=== PATIENT | male | born 1995 | race Caucasian/White ===

== ENCOUNTER 2020-10-03 11:15 | Emergency (ER) | payer SELFPAY ==
[~2020-10-03] VITALS: Ht 180.3 cm; Wt 111.1 kg
[2020-10-03] MEDS ORDERED: KETOROLAC 30 MG/ML VIAL IVP ONE (12:00)
[2020-10-03 12:10] LABS: ALBUMIN 4.5 GM/DL (3.2-4.5); CHLORIDE 104 MMOL/L (98-107); SODIUM 139 MMOL/L (135-145)
[2020-10-03 12:12] LABS: BASOPHILS # (AUTO) 0.1 10^3/uL (0.0-0.1); BASOPHILS % (AUTO) 1 % (0-10); CALCIUM 9.1 MG/DL (8.5-10.1); EOSINOPHILS # (AUTO) 0.1 10^3/uL (0.0-0.3); EOSINOPHILS % (AUTO) 2 % (0-10); HEMATOCRIT 44 % (40-54); HEMOGLOBIN 14.9 g/dL (13.3-17.7); LYMPHOCYTES # (AUTO) 2.8 10^3/uL (1.0-4.0); LYMPHOCYTES % (AUTO) 31 % (12-44); MEAN CORPUSCULAR HEMOGLOBIN 29 pg (25-34); MEAN CORPUSCULAR HGB CONC 34 g/dL (32-36); MEAN CORPUSCULAR VOLUME 87 fL (80-99); MEAN PLATELET VOLUME 9.8 fL (9.0-12.2); MONOCYTES # (AUTO) 0.7 10^3/uL (0.0-1.0); MONOCYTES % (AUTO) 7 % (0-12); NEUTROPHILS # (AUTO) 5.3 10^3/uL (1.8-7.8); NEUTROPHILS % (AUTO) 58 % (42-75); PLATELET COUNT 275 10^3/uL (130-400)
[2020-10-03 12:13] LABS: GLUCOSE 94 MG/DL (70-105); TOTAL PROTEIN 7.4 GM/DL (6.4-8.2)
[2020-10-03 12:14] LABS: CARBON DIOXIDE 25 MMOL/L (21-32)
[2020-10-03 12:15] LABS: BILIRUBIN,TOTAL 0.4 MG/DL (0.1-1.0)
[2020-10-03 12:16] LABS: ALKALINE PHOSPHATASE 72 U/L (40-136)
[2020-10-03 12:17] LABS: CREATININE SERUM 0.83 MG/DL (0.60-1.30); GFR ESTIMATED > 60
[2020-10-03 12:18] LABS: BUN/CREATININE RATIO 13
[2020-10-03 12:19] LABS: ALANINE AMINOTRANSFERASE 49 U/L (0-55); MAGNESIUM 1.7 MG/DL (1.6-2.4)
--- NOTE | 2020-10-03 12:28 | Diagnostic Imaging Report ---
PATIENT HISTORY: Chest pain. TECHNIQUE: Single frontal view of the chest. COMPARISON: None FINDINGS: The lung volumes are normal. No focal consolidation is seen. No large pleural effusion or pneumothorax is seen. The cardiomediastinal silhouette is normal in size and contour. No acute osseous abnormality is seen. IMPRESSION: No acute pulmonary abnormality seen. Dictated by: Dictated on workstation # [id number]
--- NOTE | 2020-10-03 13:22 | ED Chest Pain ---
General Chief Complaint: Chest Pain Stated Complaint: CP,SOB, NUMBNESS L ARM Nursing Triage Note: Pt c/o sudden onset of CP and SOB while talking with a co-worker. Pt reports radiation to L arm and arm was numb and felt cold. 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 Pt reports similar episode at home a couple weeks ago that only lasted approximately 10 minutes. Nursing Sepsis Screen: No Definite Risk Source: patient Exam Limitations: no limitations Allergies and Home Medications Allergies Coded Allergies: No Known Drug Allergies (Unverified , 08/27/14) Home Medications Prednisone 20 Mg Tab, 40 MG PO DAILY Prescribed by: SON VEGA on 10/03/20 1323 Past Kxcqzpo-Oksdvy-Bbeuxe Hx Patient Social History Alcohol Use: Occasionally Uses Recreational Drug Use: No 2nd Hand Smoke Exposure: No Recent Foreign Travel: No Contact w/Someone Who Travel: No Recent Infectious Disease Expo: No Immunizations Up To Date Tetanus Booster (TDap): Unknown Past Medical History Surgeries: Yes (cyst removal) Appendectomy Respiratory: No Cardiac: Yes ("mitral valve prolapse as child") Neurological: No Gastrointestinal: No Musculoskeletal: Yes (RT SHOULDER INFLAMMATION) Endocrine: No Cancer: No Psychosocial: No Integumentary: No Blood Disorders: No Physical Exam Vital Signs Vital Signs - First Documented 10/03/20 11:25 Temp 36.8 Pulse 84 Resp 25 B/P (MAP) 146/94 (111) Pulse Ox 97 O2 Delivery Room Air Capillary Refill : Less Than 3 Seconds Height, Weight, BMI Height: 6'" Weight: 210lbs. oz. 95.314219uw; 34.00 BMI Method: Progress/Results/Core Measures Results/Orders Lab Results Laboratory Tests Test 10/03/20 11:48 Range/Units White Blood Count 9.0 4.3-11.0 10^3/uL Red Blood Count 5.13 4.30-5.52 10^6/uL Hemoglobin 14.9 13.3-17.7 g/dL Hematocrit 44 40-54 % Mean Corpuscular Volume 87 80-99 fL Mean Corpuscular Hemoglobin 29 25-34 pg Mean Corpuscular Hemoglobin Concent 34 32-36 g/dL Red Cell Distribution Width 12.3 10.0-14.5 % Platelet Count 275 130-400 10^3/uL Mean Platelet Volume 9.8 9.0-12.2 fL Immature Granulocyte % (Auto) 1 % Neutrophils (%) (Auto) 58 42-75 % Lymphocytes (%) (Auto) 31 12-44 % Monocytes (%) (Auto) 7 0-12 % Eosinophils (%) (Auto) 2 0-10 % Basophils (%) (Auto) 1 0-10 % Neutrophils # (Auto) 5.3 1.8-7.8 10^3/uL Lymphocytes # (Auto) 2.8 1.0-4.0 10^3/uL Monocytes # (Auto) 0.7 0.0-1.0 10^3/uL Eosinophils # (Auto) 0.1 0.0-0.3 10^3/uL Basophils # (Auto) 0.1 0.0-0.1 10^3/uL Immature Granulocyte # (Auto) 0.1 0.0-0.1 10^3/uL Sodium Level 139 135-145 MMOL/L Potassium Level 4.0 3.6-5.0 MMOL/L Chloride Level 104 98-107 MMOL/L Carbon Dioxide Level 25 21-32 MMOL/L Anion Gap 10 5-14 MMOL/L Blood Urea Nitrogen 11 7-18 MG/DL Creatinine 0.83 0.60-1.30 MG/DL Estimat Glomerular Filtration Rate > 60 BUN/Creatinine Ratio 13 Glucose Level 94 70-105 MG/DL Calcium Level 9.1 8.5-10.1 MG/DL Corrected Calcium 8.7 8.5-10.1 MG/DL Magnesium Level 1.7 1.6-2.4 MG/DL Total Bilirubin 0.4 0.1-1.0 MG/DL Aspartate Amino Transf (AST/SGOT) 25 5-34 U/L Alanine Aminotransferase (ALT/SGPT) 49 0-55 U/L Alkaline Phosphatase 72 40-136 U/L Troponin I < 0.028 <0.028 NG/ML Total Protein 7.4 6.4-8.2 GM/DL Albumin 4.5 3.2-4.5 GM/DL My Orders Orders - SON FRANKLIN MD Cbc With Automated Diff (10/03/20 11:59) Comprehensive Metabolic Panel (10/03/20 11:59) Troponin I (10/03/20 11:59) Chest 1 View, Ap/Pa Only (10/03/20 11:59) Ketorolac Injection (Toradol Injection) (10/03/20 12:00) Magnesium (10/03/20 12:01) Medications Given in ED Current Medications Medications Dose Ordered Sig/Rafa Route Start Time Stop Time Status Last Admin Dose Admin Ketorolac Tromethamine 30 mg ONCE ONCE IVP 10/03/20 12:00 10/03/20 12:01 DC 10/03/20 12:16 30 MG Vital Signs/I&O 10/03/20 10/03/20 10/03/20 11:25 11:25 13:30 Temp 36.8 36.8 Pulse 84 75 Resp 25 20 B/P (MAP) 146/94 (111) 124/85 (111) Pulse Ox 97 95 O2 Delivery Room Air Room Air Room Air Blood Pressure Mean: 111 Initial ECG Impression Date: Oct 03, 2020 Initial ECG Impression Time: 11:33 Initial ECG Rate: 73 Initial ECG Rhythm: Normal Sinus Initial ECG Intervals: Normal Initial ECG Impression: Normal Comment Normal sinus rhythm with no ischemic ST elevation or depression. Minimal ST changes suggestive of early repolarization in a juvenile pattern. No abnormal intervals or axis deviation. Diagnostic Imaging Diagonstic Imaging: Xray Plain Films/CT/US/NM/MRI: chest Comments Chest x-ray viewed by me and report reviewed. See report below: NAME: BETSEY COOPER [facility] REC#: [id number] PT STATUS: REG ER : 1995 PHYSICIAN: SON FRANKLIN MD ADMIT DATE: 10/03/20/ER Signed Date of Exam:10/03/20 CHEST 1 VIEW, AP/PA ONLY PATIENT HISTORY: Chest pain. TECHNIQUE: Single frontal view of the chest. COMPARISON: None FINDINGS: The lung volumes are normal. No focal consolidation is seen. No large pleural effusion or pneumothorax is seen. The cardiomediastinal silhouette is normal in size and contour. No acute osseous abnormality is seen. IMPRESSION: No acute pulmonary abnormality seen. Dictated by: Dictated on workstation # [id number] Dict: 10/03/20 1226 Trans: 10/03/20 1227 S2M [id number] Interpreted by: MERCEDES URIBE MD Electronically signed by: MERCEDES URIBE MD 10/03/20 1227 Departure Impression Primary Impression: Chest wall pain Additional Impression: Cervical radiculopathy Disposition: HOME, SELF-CARE Condition: Improved Departure-Patient Inst. Referrals: NO,LOCAL PHYSICIAN (PCP/Family) Primary Care Physician Patient Instructions: Chest Pain That Is Not Caused by the Heart (DC), Radi culopathy Add. Discharge Instructions: For pain you may take ibuprofen up to 600 mg every 6 hours as needed. Add Tylenol (acetaminophen) up to 1000 mg every 6 hours as needed for additional pain relief. Complete the prednisone steroid as prescribed. Please establish with a primary care provider soon as possible. The [facility] [place] [facility] may be a good option for you as they have a sliding scale payment plan. Please call soon as possible to schedule an appointment. Please complete the financial advocate paperwork with the hospital to help facilitate any further tests that may need to be done such as MRI of the neck. I suspect that the numbness in your arm and leg, and even possibly your chest pain, may be related to a spine problem in your neck. This should be explored further with a primary care provider if steroids do not resolve your pain. Please return immediately to the emergency room if you have worsening symptoms that include weakness of an arm or leg, difficulty with bowel or bladder control, or numbness in your groin. Return to the emergency room if you have any other urgent problems or concerns. All discharge instructions reviewed with patient and/or family. Voiced understanding. Scripts Prednisone (Prednisone) 20 Mg Tab 40 MG PO DAILY, #8 TAB 0 Refills Prov: SON FRANKLIN MD 10/03/20 Work/School Note: Work Release Form Date Seen in the Emergency Department: Oct 03, 2020 Return to Work: Oct 04, 2020 Other Restrictions Listed Below: Gradually increase level of activity as pain allows SON FRANKLIN MD Oct 03, 2020 13:22
[2020-10-03] MEDS ORDERED: PRD20T PO (13:23)
[2020-10-03 13:30] VITALS: BP 124/85
== END 2020-10-03 13:30 | disposition home or self-care (01) ==
LOC: EDUNIT# 11:15 → ER 11:17
DX: R07.89 Other chest pain (principal); M54.12 Radiculopathy, cervical region; Z79.52 Long term (current) use of systemic steroids
CPT/HCPCS: 36415; 71045; 80053; 83735; 84484; 85025

== ENCOUNTER 2021-05-13 18:39 | Inpatient (IN) | payer SELFPAY ==
[~2021-05-13] VITALS: Ht 185.5 cm; Wt 108.5 kg
[~2021-05-13 18:39] MED LIST: PRD20T PO
--- NOTE | 2021-05-13 19:40 | ED General ---
General Chief Complaint: Abdominal/GI Problems Stated Complaint: CHILLS HEADACHE DIARRHEA VOMITING Nursing Triage Note: pt reports left sided abdominal pain, nausea, diarrhea, and vomiting since saturday. pt also reports bloating. pt reports pain 6/10 when sitting and 9/10 when having to move. Nursing Sepsis Screen: No Definite Risk Source of Information: Patient History of Present Illness Date Seen by Provider: May 13, 2021 Time Seen by Provider: 19:12 Initial Comments PT ARRIVES VIA POV FROM HOME PT STATES HE HAS BEEN SICK SINCE Saturday05/10/21 C/O "SEVERE DIARRHEA"--STATES HE HAS HAD BETWEEN 10 AND 20 STOOLS TODAY, NO BLACK/BLOODY/TARRY STOOLS C/O NAUSEA AND VOMITING--HAS VOMITED AT LEAST 10 TIMES TODAY, NO HEMATEMESIS OR COFFEE GROUND EMESIS C/O GENERALIZED ABDOMINAL CRAMPING C/O SUBJECTIVE FEVER AND "COLD SWEATS" C/O BODY ACHES C/O HEADACHE HAS HAD SOME MILD COUGH/CONGESTION NO LOSS OF TASTE OR SMELL HAS NOT VOIDED SINCE SOMETIME LAST EVENING HAS NOT EATEN OR DRANK ANYTHING SINCE YESTERDAY--STATES HE ATE A SALAD AT 2200 LAST NIGHT AND "WENT STRAIGHT THROUGH ME" HAS NOT TAKEN ANYTHING FOR SYMPTOMS HAS NOT SOUGHT CARE UNTIL TONIGHT NO HISTORY OF SIMILAR NO HISTORY OF GI PROBLEMS OTHER THAN SELF DX ACID REFLUX IN PAST ONLY ABDOMINAL SURGERY WAS APPENDECTOMY SEVERAL YEARS AGO NO CHRONIC MEDICAL PROBLEMS AND DOES NOT TAKE ANY MEDICATIONS PT DENIES ANY KNOWN SICK CONTACTS. PT IS NOT EMPLOYED AND CHILD ARE NOT ILL. PT HAS NOT HAD COVID-19 VACCINE PCP: NONE Allergies and Home Medications Allergies Coded Allergies: No Known Drug Allergies (Unverified , 08/27/14) Home Medications Prednisone 20 Mg Tab, 40 MG PO DAILY Prescribed by: SON VEGA on 10/03/20 1323 Patient Home Medication List Home Medication List Reviewed: Yes Review of Systems Review of Systems Constitutional: see HPI, chills, diaphoresis, fever, malaise, weakness EENTM: see HPI, nose congestion; No throat pain Respiratory: see HPI, cough; No short of breath Cardiovascular: no symptoms reported; No chest pain Gastrointestinal: see HPI, abdominal pain, diarrhea, loss of appetite, nausea, vomiting Genitourinary: see HPI, decreased output Musculoskeletal: see HPI Skin: no symptoms reported; No rash Psychiatric/Neurological: See HPI, Headache Hematologic/Lymphatic: No Symptoms Reported Immunological/Allergic: no symptoms reported Past Gcfafoy-Ruribb-Keqbkd Hx Past Med/Social Hx: Reviewed and Corrections made Patient Social History Alcohol Use: Occasionally Uses Drug of Choice: DENIES 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) 2nd Hand Smoke Exposure: No Recent Infectious Disease Expo: No Recent Hopitalizations: No Immunizations Up To Date Tetanus Booster (TDap): Unknown Past Medical History Surgeries: Yes (cyst removal) Appendectomy Respiratory: No Cardiac: Yes ("mitral valve prolapse as child") Neurological: No Gastrointestinal: No Musculoskeletal: Yes (RT SHOULDER INFLAMMATION) Endocrine: No Cancer: No Psychosocial: No Integumentary: No Blood Disorders: No Physical Exam Vital Signs Vital Signs - First Documented 05/13/21 18:45 Temp 36.7 Pulse 89 Resp 16 B/P (MAP) 114/81 (92) Pulse Ox 98 Capillary Refill : Less Than 3 Seconds Height, Weight, BMI Height: 6'" Weight: 210lbs. oz. 95.837763jt; 35.00 BMI Method: General Appearance: No Apparent Distress, WD/WN HEENT: PERRL/EOMI, Normal ENT Inspection Neck: Normal Inspection Respiratory: Normal Breath Sounds, No Accessory Muscle Use, No Respiratory Distress Cardiovascular: No JVD, No Murmur, Normal Peripheral Pulses, Irregularly Irregular, Tachycardia (100-110) Gastrointestinal: No Organomegaly, No Pulsatile Mass, Soft, Abnormal Bowel Sounds (HYPERACTIVE); No Distended; Tenderness (DIFFUSE TENDERNESS) Back: No CVA Tenderness Extremity: Normal Capillary Refill, Normal Inspection, No Pedal Edema Neurologic/Psychiatric: Alert, Oriented x3, No Motor/Sensory Deficits, Normal M ood/Affect, lacquer mixer II-XII Norm as Tested Skin: Normal Color, Warm/Dry; No Rash; Tattoos/Piercings (MULTIPLE TATTOOS) Focused Exam Lactate Level 05/13/21 20:05: Lactic Acid Level 1.23 Lactic Acid Level Laboratory Tests Test 05/13/21 20:05 Lactic Acid Level 1.23 MMOL/L (0.50-2.00) Progress/Results/Core Measures Suspected Sepsis Recent Fever Within 48 Hours: No Infection Criteria Present: None New/Unexplained Altered Menta: No Sepsis Screen: No Definite Risk SIRS Temperature: Pulse: 89 Respiratory Rate: 16 Laboratory Tests 05/13/21 20:05: White Blood Count 9.8 Blood Pressure 114 /81 Mean: 92 05/13/21 20:05: Lactic Acid Level 1.23 Laboratory Tests 05/13/21 20:05: Creatinine 0.94, INR Comment 1.0, Platelet Count 262, Total Bilirubin 1.1H Results/Orders Lab Results Laboratory Tests Test 05/13/21 19:50 05/13/21 20:05 05/13/21 20:40 Range/Units Influenza Type A (RT-PCR) Not Detected Not Detecte Influenza Type B (RT-PCR) Not Detected Not Detecte SARS-CoV-2 RNA (RT-PCR) Not Detected Not Detecte White Blood Count 9.8 4.3-11.0 10^3/uL Red Blood Count 5.58 H 4.30-5.52 10^6/uL Hemoglobin 16.3 13.3-17.7 g/dL Hematocrit 48 40-54 % Mean Corpuscular Volume 86 80-99 fL Mean Corpuscular Hemoglobin 29 25-34 pg Mean Corpuscular Hemoglobin Concent 34 32-36 g/dL Red Cell Distribution Width 12.5 10.0-14.5 % Platelet Count 262 130-400 10^3/uL Mean Platelet Volume 9.4 9.0-12.2 fL Immature Granulocyte % (Auto) 1 % Neutrophils (%) (Auto) 78 H 42-75 % Lymphocytes (%) (Auto) 14 12-44 % Monocytes (%) (Auto) 6 0-12 % Eosinophils (%) (Auto) 0 0-10 % Basophils (%) (Auto) 0 0-10 % Neutrophils # (Auto) 7.7 1.8-7.8 10^3/uL Lymphocytes # (Auto) 1.4 1.0-4.0 10^3/uL Monocytes # (Auto) 0.6 0.0-1.0 10^3/uL Eosinophils # (Auto) 0.0 0.0-0.3 10^3/uL Basophils # (Auto) 0.0 0.0-0.1 10^3/uL Immature Granulocyte # (Auto) 0.1 0.0-0.1 10^3/uL Prothrombin Time 13.8 12.2-14.7 SEC INR Comment 1.0 0.8-1.4 Activated Partial Thromboplast Time 27 24-35 SEC Sodium Level 140 135-145 MMOL/L Potassium Level 3.8 3.6-5.0 MMOL/L Chloride Level 105 98-107 MMOL/L Carbon Dioxide Level 23 21-32 MMOL/L Anion Gap 12 5-14 MMOL/L Blood Urea Nitrogen 13 7-18 MG/DL Creatinine 0.94 0.60-1.30 MG/DL Estimat Glomerular Filtration Rate > 60 BUN/Creatinine Ratio 14 Glucose Level 94 70-105 MG/DL Lactic Acid Level 1.23 0.50-2.00 MMOL/L Calcium Level 9.5 8.5-10.1 MG/DL Corrected Calcium 9.2 8.5-10.1 MG/DL Magnesium Level 2.7 H 1.6-2.4 MG/DL Total Bilirubin 1.1 H 0.1-1.0 MG/DL Aspartate Amino Transf (AST/SGOT) 40 H 5-34 U/L Alanine Aminotransferase (ALT/SGPT) 72 H 0-55 U/L Alkaline Phosphatase 64 40-136 U/L Total Protein 7.8 6.4-8.2 GM/DL Albumin 4.4 3.2-4.5 GM/DL Amylase Level 39 25-125 U/L Lipase 20 8-78 U/L TSH [place] Testing 1.05 0.35-4.94 UIU/ML Urine Color YELLOW Urine Clarity CLEAR Urine pH 6.0 5-9 Urine Specific [place] >=1.030 1.016-1.022 Urine Protein TRACE H NEGATIVE Urine Glucose (UA) NEGATIVE NEGATIVE Urine Ketones 2+ H NEGATIVE Urine Nitrite NEGATIVE NEGATIVE Urine Bilirubin 1+ H NEGATIVE Urine Urobilinogen 1.0 < = 1.0 MG/DL Urine Leukocyte Esterase NEGATIVE NEGATIVE Urine RBC (Auto) NEGATIVE NEGATIVE Urine RBC NONE /HPF Urine WBC RARE /HPF Urine Squamous Epithelial Cells RARE /HPF Urine Crystals NONE /LPF Urine Bacteria TRACE /HPF Urine Casts NONE /LPF Urine Mucus MODERATE H /LPF Urine Culture Indicated NO Urine Opiates Screen NEGATIVE NEGATIVE Urine Oxycodone Screen NEGATIVE NEGATIVE Urine Methadone Screen NEGATIVE NEGATIVE Urine Propoxyphene Screen NEGATIVE NEGATIVE Urine Barbiturates Screen NEGATIVE NEGATIVE Ur Tricyclic Antidepressants Screen NEGATIVE NEGATIVE Urine Phencyclidine Screen NEGATIVE NEGATIVE Urine Amphetamines Screen NEGATIVE NEGATIVE Urine Methamphetamines Screen NEGATIVE NEGATIVE Urine Benzodiazepines Screen NEGATIVE NEGATIVE Urine Cocaine Screen NEGATIVE NEGATIVE Urine Cannabinoids Screen NEGATIVE NEGATIVE My Orders Orders - TRIP,CAROL K DO Ed Iv/Invasive Line Start (05/13/21 19:11) Covid 19 Inhouse Test (05/13/21 19:11) Influenza A And B By Pcr (05/13/21 19:11) Ekg Tracing (05/13/21 19:32) Monitor-Rhythm Ecg Trace Only (05/13/21 19:32) Amylase (05/13/21 19:32) Cbc With Automated Diff (05/13/21:32) Comprehensive Metabolic Panel (05/13/21 19:32) Drug Screen Stat (Urine) (05/13/21 19:32) Lactic Acid Analyzer (05/13/21:32) Lipase (05/13/21:32) Magnesium (05/13/21:32) Protime With Inr (05/13/21:32) Partial Thromboplastin Time (05/13/21 19:32) Thyroid Analyzer (05/13/21 19:32) Ua Culture If Indicated (05/13/21 19:32) Ed Iv/Invasive Line Start (05/13/21 19:32) Lactated Ringers (Lr 1000 Ml Iv Solution (05/13/21 19:45) Ondansetron Injection (Zofran Injectio (05/13/21 19:45) Hyoscyamine Sl Tablet (Levsin Sl Tablet) (05/13/21 19:45) Enoxaparin Injection (Lovenox Injection) (05/13/21 20:15) Enoxaparin Injection (Lovenox Injection) (05/13/21 20:15) Ct Abdomen/Pelvis W (05/13/21 20:47) Ed Iv/Invasive Line Start (05/13/21 20:56) Lactated Ringers (Lr 1000 Ml Iv Solution (05/13/21 21:00) Chest 1 View, Ap/Pa Only (05/13/21 20:57) Medications Given in ED Current Medications Medications Dose Ordered Sig/Rafa Route Start Time Stop Time Status Last Admin Dose Admin Enoxaparin Sodium 40 mg ONCE ONCE SC 05/13/21 20:15 05/13/21 20:16 DC 05/13/21 20:38 40 MG Enoxaparin Sodium 80 mg ONCE ONCE SC 05/13/21 20:15 05/13/21 20:16 DC 05/13/21 20:38 80 MG Hyoscyamine Sulfate 0.25 mg ONCE ONCE SL 05/13/21 19:45 05/13/21 19:46 DC 05/13/21 19:49 0.25 MG Iohexol 100 ml ONCE ONCE IV 05/13/21 21:00 05/13/21 21:11 DC 05/13/21 20:57 100 ML Lactated Ringer's 1,000 ml @ 0 mls/hr Q0M ONCE IV 05/13/21 19:45 05/13/21 19:46 DC 05/13/21 20:06 0 MLS/HR Lactated Ringer's 1,000 ml @ 0 mls/hr Q0M ONCE IV 05/13/21 21:00 05/13/21 21:01 DC 05/13/21 22:23 0 MLS/HR Ondansetron HCl 8 mg ONCE ONCE IVP 05/13/21 19:45 05/13/21 19:46 DC 05/13/21 20:06 8 MG Sodium Chloride 80 ml ONCE ONCE IV 05/13/21 21:00 05/13/21 21:11 DC 05/13/21 20:57 80 ML Vital Signs/I&O 05/13/21 18:45 Temp 36.7 Pulse 89 Resp 16 B/P (MAP) 114/81 (92) Pulse Ox 98 05/13/21 23:59 Intake Total 1000 ml Balance 1000 ml Capillary Refill : Less Than 3 Seconds Blood Pressure Mean: 92 Progress Note : Progress Note PLACED IN ISOLATION ROOM PPE WORN AT ALL TIMES COVID-19 TESTING PERFORMED LATER REMOVED FROM ISOLATION ON NEGATIVE COVID-19 RESULT GIVEN IV FLUIDS, ZOFRAN, LEVSIN NAUSEA AND CRAMPING IMPROVED NO VOMITING OR DIARRHEA DURING ER STAY VOIDED AFTER 500 ML FLUIDS INFUSED PT NOTED TO BE IN ATRIAL FIBRILLATION--PT HAS NO SENSATION OF IRREGULAR HEART BEAT GIVEN LOVENOX JUST PRIOR TO ADMIT, PT NOW REPORTS THAT HE HAS NOTICED BRIEF EPISODES OF "FLUTTERING" SENSATION IN HIS CHEST OVER THE LAST YEAR OR TWO, BUT NEVER SOUGHT CARE PT DOES NOT HAVE THAT SENSATION NOW, BUT HAS BEEN IN PERSISTENT ATRIAL FIBRILLATION FOR ENTIRE ER STAY--UNAWARE OF IRREGULAR HEART BEAT DURING ER STAY. ECG Initial ECG Impression Date: May 13, 2021 Initial ECG Impression Time: 19:44 Initial ECG Rate: 93 Initial ECG Rhythm: A Fib/Flutter Initial ECG Comparisson: No Previous ECG Available Diagnostic Imaging Comments CT ABDOMEN/PELVIS--PER RADIOLOGIST REPORT AT 2132 FINDINGS: The lung bases are clear. There is fatty liver with no focal abnormality. Gallbladder appears normal. A couple small renal calculi are seen in each kidney. No calculus is seen in either ureter or the urinary bladder. There is no hydronephrosis or inflammation. The spleen, pancreas and adrenal glands are normal. Urinary bladder appears normal. There is no ascites. The appendix appears to be absent. Colon demonstrates no inflammatory or obstructive change. Small bowel loops are fluid-filled, hence, possible enteritis. No inflammation seen around this. Osseous vascular structures appear normal. IMPRESSION: 1. There is a fatty liver. 2. Bilateral renal lithiasis is present. No obstruction or inflammation is present. 3. Questionable mild enteritis. CXR--NO ACUTE PROCESS, PER RADIOLOGIST REPORT AT 2132 Reviewed: Reviewed by Nv Departure Communication (Admissions) 2133--SPOKE WITH DR. CARRASCO, HOSPITALIST, ACCEPTS PT FOR ADMIT 2138--SPOKE WITH DR. MEDINA, QUALITY ASSURANCE SUPERVISOR TRIM, FOR CONSULT. ADVISES TO ADD TOPROL XL 25 MG AND WILL GET ECHOCARDIOGRAM IN AM. Impression Primary Impression: NEW DX OF ATRIAL FIBRILLATION Additional Impressions: Gastroenteritis Dehydration Disposition: ADMITTED INPATIENT Condition: Improved Admissions Decision to Admit Reason: Admit from ER (General) Decision to Admit/Date: May 13, 2021 Time/Decision to Admit Time: 21:35 Departure-Patient Inst. Referrals: NO,LOCAL PHYSICIAN (PCP/Family) Primary Care Physician CAROL DOMINIQUE DO May 13, 2021 19:40
[2021-05-13] MEDS ORDERED: LACTATED RINGERS 1,000 ML IV ONE ×2 (19:45→21:00)
[2021-05-13] MEDS ORDERED: ONDANSETRON 4 MG/2 ML (SDV) Z0FRAN IVP ONE (19:45)
[2021-05-13] MEDS ORDERED: HYOSCYAMINE 0.125 MG (LEVSIN) TAB SL ONE (19:45)
[2021-05-13] MEDS ORDERED: ENOXAPARIN 40 MG/0.4 ML (LOVENOX) SYR SC ONE (20:15)
[2021-05-13] MEDS ORDERED: ENOXAPARIN 80 MG/0.8 ML (LOVENOX) SYR SC ONE (20:15)
[2021-05-13 20:20] LABS: BASOPHILS % (AUTO) 0 % (0-10); EOSINOPHILS % (AUTO) 0 % (0-10); HEMATOCRIT 48 % (40-54); HEMOGLOBIN 16.3 g/dL (13.3-17.7); LYMPHOCYTES # (AUTO) 1.4 10^3/uL (1.0-4.0); LYMPHOCYTES % (AUTO) 14 % (12-44); MEAN CORPUSCULAR HEMOGLOBIN 29 pg (25-34); MEAN CORPUSCULAR HGB CONC 34 g/dL (32-36); MEAN CORPUSCULAR VOLUME 86 fL (80-99); MEAN PLATELET VOLUME 9.4 fL (9.0-12.2); MONOCYTES # (AUTO) 0.6 10^3/uL (0.0-1.0); MONOCYTES % (AUTO) 6 % (0-12); NEUTROPHILS # (AUTO) 7.7 10^3/uL (1.8-7.8); NEUTROPHILS % (AUTO) 78 % (42-75); PLATELET COUNT 262 10^3/uL (130-400); WHITE BLOOD COUNT 9.8 10^3/uL (4.3-11.0)
[2021-05-13 20:38] LABS: PROTHROMBIN TIME PATIENT 13.8 SEC (12.2-14.7)
[2021-05-13 20:45] LABS: ALANINE AMINOTRANSFERASE 72 U/L (0-55); ALBUMIN 4.4 GM/DL (3.2-4.5); ALKALINE PHOSPHATASE 64 U/L (40-136); AMYLASE 39 U/L (25-125); BILIRUBIN,TOTAL 1.1 MG/DL (0.1-1.0); BUN/CREATININE RATIO 14; CALCIUM 9.5 MG/DL (8.5-10.1); CARBON DIOXIDE 23 MMOL/L (21-32); CHLORIDE 105 MMOL/L (98-107); CREATININE SERUM 0.94 MG/DL (0.60-1.30); GFR ESTIMATED > 60; GLUCOSE 94 MG/DL (70-105); LIPASE 20 U/L (8-78); MAGNESIUM 2.7 MG/DL (1.6-2.4); POTASSIUM 3.8 MMOL/L (3.6-5.0); SODIUM 140 MMOL/L (135-145); TOTAL PROTEIN 7.8 GM/DL (6.4-8.2)
[2021-05-13 20:45] LABS: CLARITY,URINE CLEAR; COLOR,URINE YELLOW; GLUCOSE, URINE (UA) NEGATIVE (NEGATIVE); KETONES,URINE 2+ (NEGATIVE); LEUKOCYTE ESTERASE ,URINE NEGATIVE (NEGATIVE); NITRITE,URINE NEGATIVE (NEGATIVE); PROTEIN,URINE TRACE (NEGATIVE)
[2021-05-13 20:50] LABS: BILIRUBIN,URINE 1+ (NEGATIVE)
[2021-05-13 20:52] LABS: BACTERIA,URINE TRACE /HPF; SQUAMOUS EPITHELIAL CELL,UR RARE /HPF; WBC,URINE RARE /HPF
[2021-05-13 20:56] LABS: AMPHETAMINE SCREEN, URINE NEGATIVE (NEGATIVE); BARBITURATE SCREEN URINE NEGATIVE (NEGATIVE); BENZODIAZEPINES SCREEN URINE NEGATIVE (NEGATIVE); CANNABINOID SCREEN, URINE NEGATIVE (NEGATIVE); COCAINE SCREEN URINE NEGATIVE (NEGATIVE); METHADONE STAT NEGATIVE (NEGATIVE); METHAMPHETAMINE SCREEN URINE S NEGATIVE (NEGATIVE); OPIATE SCREEN URINE NEGATIVE (NEGATIVE); OXYCODONE STAT NEGATIVE (NEGATIVE); PROPOXYPHENE STAT NEGATIVE (NEGATIVE); TRICYCLIC ANTIDEPRESSANTS SCRE NEGATIVE (NEGATIVE)
[2021-05-13] MEDS ORDERED: NS 100 ML (IVPB) BAG IV ONE (21:00)
[2021-05-13] MEDS ORDERED: IOHEXOL 350 MG/ML 100 ML (OMNIPAQUE 350) VIAL IV ONE (21:00)
[2021-05-13 21:04] LABS: TSH (THYROID ANALYZER) 1.05 UIU/ML (0.35-4.94)
--- NOTE | 2021-05-13 21:21 | Diagnostic Imaging Report ---
PROCEDURE: CT abdomen and pelvis with contrast. TECHNIQUE: CT scans use one or more of the following dose optimizing techniques: automated exposure control, MA and/or KvP adjustment based on patient size and exam type or iterative reconstruction. INDICATION: Abdominal pain. FINDINGS: The lung bases are clear. There is fatty liver with no focal abnormality. Gallbladder appears normal. A couple small renal calculi are seen in each kidney. No calculus is seen in either ureter or the urinary bladder. There is no hydronephrosis or inflammation. The spleen, pancreas and adrenal glands are normal. Urinary bladder appears normal. There is no ascites. The appendix appears to be absent. Colon demonstrates no inflammatory or obstructive change. Small bowel loops are fluid-filled, hence, possible enteritis. No inflammation seen around this. Osseous vascular structures appear normal. IMPRESSION: 1. There is a fatty liver. 2. Bilateral renal lithiasis is present. No obstruction or inflammation is present. 3. Questionable mild enteritis. Dictated by: Dictated on workstation # [id number]
--- NOTE | 2021-05-13 21:22 | Diagnostic Imaging Report ---
INDICATION: Atrial fibrillation. COMPARISON STUDY: Chest from October 03. FINDINGS: Frontal view of the chest demonstrates the lungs to be clear. The heart, mediastinum, pulmonary vascularity and visualized bony thorax are normal. IMPRESSION: Normal chest. Dictated by: Dictated on workstation # [id number]
[2021-05-13] MEDS ORDERED: PANTOPRAZOLE 40 MG (PROTONIX) VIAL IV ONE (22:15)
[2021-05-13] MEDS ORDERED: HYOSCYAMINE 0.125 MG (LEVSIN) TAB SL PRN (23:45)
[2021-05-13] MEDS ORDERED: ONDANSETRON 4 MG/2 ML (SDV) Z0FRAN IV PRN (23:45)
[2021-05-13 23:55] VITALS: BP 116/80
[2021-05-14] MEDS: D5 1/2 NS W/KCL 20 MEQ/L 1,000 ML IV SCH ×2 (00:15→06:12)
[2021-05-14 04:17] LABS: BASOPHILS % (AUTO) 0 % (0-10); EOSINOPHILS # (AUTO) 0.1 10^3/uL (0.0-0.3); EOSINOPHILS % (AUTO) 1 % (0-10); HEMATOCRIT 43 % (40-54); HEMOGLOBIN 14.5 g/dL (13.3-17.7); LYMPHOCYTES # (AUTO) 2.9 10^3/uL (1.0-4.0); LYMPHOCYTES % (AUTO) 39 % (12-44); MEAN CORPUSCULAR HEMOGLOBIN 29 pg (25-34); MEAN CORPUSCULAR HGB CONC 34 g/dL (32-36); MEAN CORPUSCULAR VOLUME 86 fL (80-99); MEAN PLATELET VOLUME 9.2 fL (9.0-12.2); MONOCYTES # (AUTO) 0.9 10^3/uL (0.0-1.0); MONOCYTES % (AUTO) 12 % (0-12); NEUTROPHILS # (AUTO) 3.6 10^3/uL (1.8-7.8); NEUTROPHILS % (AUTO) 48 % (42-75); PLATELET COUNT 233 10^3/uL (130-400); WHITE BLOOD COUNT 7.5 10^3/uL (4.3-11.0)
[2021-05-14 04:23] LABS: ALBUMIN 3.7 GM/DL (3.2-4.5); CHLORIDE 107 MMOL/L (98-107); POTASSIUM 3.9 MMOL/L (3.6-5.0); SODIUM 140 MMOL/L (135-145)
[2021-05-14 04:25] LABS: CALCIUM 8.6 MG/DL (8.5-10.1)
[2021-05-14 04:26] LABS: GLUCOSE 105 MG/DL (70-105); TOTAL PROTEIN 6.2 GM/DL (6.4-8.2)
[2021-05-14 04:27] LABS: BILIRUBIN,TOTAL 0.7 MG/DL (0.1-1.0); CARBON DIOXIDE 24 MMOL/L (21-32)
[2021-05-14 04:29] LABS: ALKALINE PHOSPHATASE 50 U/L (40-136); CREATININE SERUM 0.85 MG/DL (0.60-1.30); GFR ESTIMATED > 60
[2021-05-14 04:30] LABS: BUN/CREATININE RATIO 12
[2021-05-14 04:32] LABS: ALANINE AMINOTRANSFERASE 58 U/L (0-55)
[2021-05-14 04:55] VITALS: BP 96/65
[2021-05-14 08:00] VITALS: BP 109/66
[2021-05-14] MEDS ORDERED: PANTOPRAZOLE 40 MG (PROTONIX) VIAL IV SCH (09:00)
[2021-05-14] MEDS ORDERED: ENOXAPARIN 300 MG/3 ML (LOVENOX) MULTI-DOSE VIAL SQ SCH (09:00)
[2021-05-14] MEDS ORDERED: MTP25TSR PO (11:26)
[2021-05-14] MEDS ORDERED: APIX5TAB PO (11:26)
--- NOTE | 2021-05-14 11:27 | Discharge Summary ---
Discharge Summary Hospital Course Problems/Dx: (1) Gastroenteritis Status: Acute (2) Paroxysmal atrial fibrillation Status: Acute Hospital Course Date of Admission: May 13, 2021 at 21:35 Admission Diagnosis : Gastroenteritis, paroxysmal atrial fibrillation Family Physician/Provider: Shanae Blanco Physician Date of Discharge: 05/14/21 Discharge Diagnosis: Gastroenteritis, paroxysmal atrial fibrillation Hospital Course: Courtney Tucker is a 25-year-old male who presented with nausea, vomiting, and diarrhea and was admitted with gastroenteritis. He was treated with IV fluids and his symptoms improved. His course was complicated by paroxysmal atrial fibrillation. This was a new diagnosis. He was started on Toprol and Eliquis. Cardiology was consulted and assisted with his care. He underwent an echocardiogram but results were pending at the time of discharge. He was discharged home in stable condition. He will follow up with cardiology as scheduled. He plans to establish care at the [facility]. Labs and Pending Lab Test: Laboratory Tests 05/13/21 19:50: Influenza Type A (RT-PCR) Not Detected, Influenza Type B (RT-PCR) Not Detected, SARS-CoV-2 RNA (RT-PCR) Not Detected 05/13/21 20:05: White Blood Count 9.8, Red Blood Count 5.58H, Hemoglobin 16.3, Hematocrit 48, Mean Corpuscular Volume 86, Mean Corpuscular Hemoglobin 29, Mean Corpuscular Hemoglobin Concent 34, Red Cell Distribution Width 12.5, Platelet Count 262, Mean Platelet Volume 9.4, Immature Granulocyte % (Auto) 1, Neutrophils (%) (Auto) 78H, Lymphocytes (%) (Auto) 14, Monocytes (%) (Auto) 6, Eosinophils (%) (Auto) 0, Basophils (%) (Auto) 0, Neutrophils # (Auto) 7.7, Lymphocytes # (Auto) 1.4, Monocytes # (Auto) 0.6, Eosinophils # (Auto) 0.0, Basophils # (Auto) 0.0, Immature Granulocyte # (Auto) 0.1, Prothrombin Time 13.8, INR Comment 1.0, Activated Partial Thromboplast Time 27, Sodium Level 140, Potassium Level 3.8, Chloride Level 105, Carbon Dioxide Level 23, Anion Gap 12, Blood Urea Nitrogen 13, Creatinine 0.94, Estimat Glomerular Filtration Rate > 60, BUN/Creatinine Ratio 14, Glucose Level 94, Lactic Acid Level 1.23, Calcium Level 9.5, Corrected Calcium 9.2, Magnesium Level 2.7H, Total Bilirubin 1.1H, Aspartate Amino Transf (AST/SGOT) 40H, Alanine Aminotransferase (ALT/SGPT) 72H, Alkaline Phosphatase 64, Total Protein 7.8, Albumin 4.4, Amylase Level 39, Lipase 20, TSH [place] Testing 1.05 05/13/21 20:40: Urine Color YELLOW, Urine Clarity CLEAR, Urine pH 6.0, Urine Specific [place] >=1.030, Urine Protein TRACEH, Urine Glucose (UA) NEGATIVE, Urine Ketones 2+H, Urine Nitrite NEGATIVE, Urine Bilirubin 1+H, Urine Urobilinogen 1.0, Urine Leukocyte Esterase NEGATIVE, Urine RBC (Auto) NEGATIVE, Urine RBC NONE, Urine WBC RARE, Urine Squamous Epithelial Cells RARE, Urine Crystals NONE, Urine Bacteria TRACE, Urine Casts NONE, Urine Mucus MODERATEH, Urine Culture Indicated NO, Urine Opiates Screen NEGATIVE, Urine Oxycodone Screen NEGATIVE, Urine Methadone Screen NEGATIVE, Urine Propoxyphene Screen NEGATIVE, Urine Barbiturates Screen NEGATIVE, Ur Tricyclic Antidepressants Screen NEGATIVE, Urine Phencyclidine Screen NEGATIVE, Urine Amphetamines Screen NEGATIVE, Urine Methamphetamines Screen NEGATIVE, Urine Benzodiazepines Screen NEGATIVE, Urine Cocaine Screen NEGATIVE, Urine Cannabinoids Screen NEGATIVE 05/14/21 04:02: White Blood Count 7.5, Red Blood Count 5.00, Hemoglobin 14.5, Hematocrit 43, Mean Corpuscular Volume 86, Mean Corpuscular Hemoglobin 29, Mean Corpuscular Hemoglobin Concent 34, Red Cell Distribution Width 12.6, Platelet Count 233, Mean Platelet Volume 9.2, Immature Granulocyte % (Auto) 1, Neutrophils (%) (Auto) 48, Lymphocytes (%) (Auto) 39, Monocytes (%) (Auto) 12, Eosinophils (%) (Auto) 1, Basophils (%) (Auto) 0, Neutrophils # (Auto) 3.6, Lymphocytes # (Auto) 2.9, Monocytes # (Auto) 0.9, Eosinophils # (Auto) 0.1, Basophils # (Auto) 0.0, Immature Granulocyte # (Auto) 0.0, Sodium Level 140, Potassium Level 3.9, Chloride Level 107, Carbon Dioxide Level 24, Anion Gap 9, Blood Urea Nitrogen 10, Creatinine 0.85, Estimat Glomerular Filtration Rate > 60, BUN/Creatinine Ratio 12, Glucose Level 105, Calcium Level 8.6, Corrected Calcium 8.8, Total Bilirubin 0.7, Aspartate Amino Transf (AST/SGOT) 27, Alanine Aminotransferase (ALT/SGPT) 58H, Alkaline Phosphatase 50, Total Protein 6.2L, Albumin 3.7 Microbiology 05/14/21 C. difficile GDH Antigen & Toxins - Final, Resulted 05/14/21 Stool Culture, Resulted Pending Home Meds Active Eliquis (Apixaban) 5 Mg Tablet 5 Mg PO BID 30 Days Metoprolol Succinate 25 Mg Tab.er.24h 25 Mg PO DAILY 30 Days Prednisone 20 Mg Tab 40 Mg PO DAILY Assessment/Pt Instructions Take medications as prescribed. Begin taking Toprol and Eliquis for atrial fibrillation. Take in plenty of fluids to prevent dehydration. Establish care with a primary care physician. Return with worsening lightheadedness, dizziness, palpitations, or if you feel like you are getting worse. Discharge Planning: <30 minutes discharge planning Discharge Instructions Discharge Diet: No Restrictions Activity as Tolerated: Yes Consultations Cardiology Discharge Physical Examination Vital Signs Vital Signs Date Time Temp Pulse Resp B/P (MAP) Pulse Ox O2 Delivery O2 Flow Rate FiO2 05/14/21 08:00 Room Air 05/14/21 08:00 36.8 64 16 109/66 (80) 97 General Appearance: No Apparent Distress, WD/WN HEENT: PERRL/EOMI, Pharynx Normal Respiratory: Lungs Clear, Normal Breath Sounds, No Respiratory Distress Cardiovascular: No Edema, No Murmur, Irregularly Irregular Gastrointestinal: Normal Bowel Sounds, Non Tender, Soft Extremity: Normal Inspection, Non Tender, No Pedal Edema Skin: Normal Color, Warm/Dry Neurologic/Psychiatric: Alert, Oriented x3, No Motor/Sensory Deficits, Normal Mood/Affect Allergies: Coded Allergies: No Known Drug Allergies (Unverified , 08/27/14) Copy Copies To 1: [facility] [place] Date of Admission May 13, 2021 at 21:35 Date of Discharge Discharge Date: May 14, 2021 Discharge Time: 12:12 Admission Diagnosis Gastroenteritis, atrial fibrillation Consults/Procedures Consulations Cardiology Discharge Diagnosis (1) Gastroenteritis Status: Acute (2) Paroxysmal atrial fibrillation Status: Acute GAYATHRI CARRASCO MD May 14, 2021 11:27
--- NOTE | 2021-05-14 11:31 | Consultation-Cardiology ---
HPI-Cardiology Cardiology Consultation: Date of Consultation 05/14/21 Date of Admission Attending Physician Gayathri Carrasco MD Admitting Physician No,Local Physician Consulting Physician WALI MEDINA JR, MD HPI: Time Seen by a Provider: 11:27 Chief Complaint: Reason for consultation: Atrial fibrillation I had the pleasure of seeing Courtney on the cardiac stepdown unit at [facility] today. Approximately 3 months ago he started developing intermittent p alpitations. He would have the sensation of a fluttering in his chest. This would make him feel short of breath and he went to have a pressure in the center of his chest. The symptoms are usually fleeting in nature. Nothing seems to bring these on and nothing seemed to make these resolve other than just waiting. However, at one point, he felt as though he was having a heart attack 1 day and came to the emergency room for further evaluation. By the time he arrived in the emergency room, his symptoms had completely resolved. He underwent some testing in the emergency room and then was discharged home without any specific diagnosis. Then over the past 4 days he has been having intermittent nausea, vomiting, and diarrhea. He has had some intermittent abdominal discomfort. He denies fever or chills. He was just treating this at home. However, yesterday he was on his way home from a birthday [place] in [place] and his symptoms became more severe so he stopped in the emergency room for further evaluation. While he was in the emergency room, he was noted to be in atrial fibrillation and I was notified by the emergency room physician for a cardiology consultation. He does recall having some slight palpitations last evening but denies any palpitations today. His gastrointestinal symptoms have improved. His chest discomfort and dyspnea have also resolved. He states that when he was younger, he was told that he had mitral valve prolapse but that he would probably outgrow this condition. He does not recall the last time he had an echocardiogram. He denies paroxysmal nocturnal dyspnea, orthopnea, lightheadedness, syncope, or lower ex tremity edema. He does not smoke cigarettes or use illegal drugs. He works as a light welder plastic. Review of Systems-Cardiology Review of Systems Other comments Review of 10 organ systems is as per the history of present illness, otherwise negative. AQB-Bkofez-Qpmavx Hx Patient Social History Marrital Status: Smoking Status: Former Smoker 2nd Hand Smoke Exposure: No Have you traveled recently?: No Alcohol Use?: Yes Pt feels they are or have been: No Immunizations Up To Date Tetanus Booster (TDap): Unknown Past Medical History PMH As described under Assessment. Family Medical History Family Medical History: He does not know of any family history of premature coronary disease. Allergies and Home Medications Allergies Coded Allergies: No Known Drug Allergies (Unverified , 08/27/14) Home Medications Apixaban 5 Mg Tablet, 5 MG PO BID Prescribed by: GAYATHRI CARRASCO on 05/14/21 1126 Metoprolol Succinate 25 Mg Tab.er.24h, 25 MG PO DAILY Prescribed by: GAYATHRI CARRASCO on 05/14/21 1126 Prednisone 20 Mg Tab, 40 MG PO DAILY Prescribed by: SON VEGA on 10/03/20 1323 Patient Home Medication List Home Medication List Reviewed: Yes Physical Exam-Cardiology Physical Exam Vital Signs/I&O 05/14/21 05/14/21 05/14/21 05/14/21 04:55 07:00 08:00 08:00 Temp 36.6 36.8 Pulse 81 62 64 Resp 16 16 B/P (MAP) 96/65 (75) 109/66 (80) Pulse Ox 98 97 O2 Delivery Room Air Room Air Room Air 05/14/21 00:00 Intake Total 1000 ml Balance 1000 ml Capillary Refill : Less Than 3 Seconds Constitutional: appears stated age, AAO x 3, apparent distress, well-developed, well-nourished, other (He is overweight.) HEENT: other (Normocephalic and atraumatic. Extraocular movements are intact. There are no xanthelasma. Sclerae are clear.) Neck: non-tender, full range of motion, supple, normal inspection, carotid pulses are 2 + bilaterally, with good upstrokes Respiratory: other (There is good respiratory effort with symmetrical expansion bilaterally. The lungs are clear to auscultation bilaterally.) Cardiovascular: irregularly irregular, S1 and S2, other (No murmurs, rubs, or gallops appreciated.) Gastrointestinal: other (The abdomen is soft, nontender and nondistended.) Rectal: deferred Extremities: normal range of motion, non-tender, normal inspection, no lower extremity edema bilateral Neurologic/Psychiatric: normal mood/affect, other (Alert and oriented x3. Cranial nerves III through XII are grossly intact. The patient has good motor tone and strength in the upper and lower extremities bilaterally.) Data Review Labs Laboratory Tests 05/13/21 19:50: Influenza Type A (RT-PCR) Not Detected, Influenza Type B (RT-PCR) Not Detected, SARS-CoV-2 RNA (RT-PCR) Not Detected 05/13/21 20:05: White Blood Count 9.8, Red Blood Count 5.58H, Hemoglobin 16.3, Hematocrit 48, Mean Corpuscular Volume 86, Mean Corpuscular Hemoglobin 29, Mean Corpuscular Hemoglobin Concent 34, Red Cell Distribution Width 12.5, Platelet Count 262, Mean Platelet Volume 9.4, Immature Granulocyte % (Auto) 1, Neutrophils (%) (Auto) 78H, Lymphocytes (%) (Auto) 14, Monocytes (%) (Auto) 6, Eosinophils (%) (Auto) 0, Basophils (%) (Auto) 0, Neutrophils # (Auto) 7.7, Lymphocytes # (Auto) 1.4, Monocytes # (Auto) 0.6, Eosinophils # (Auto) 0.0, Basophils # (Auto) 0.0, Immature Granulocyte # (Auto) 0.1, Prothrombin Time 13.8, INR Comment 1.0, Activated Partial Thromboplast Time 27, Sodium Level 140, Potassium Level 3.8, Chloride Level 105, Carbon Dioxide Level 23, Anion Gap 12, Blood Urea Nitrogen 13, Creatinine 0.94, Estimat Glomerular Filtration Rate > 60, BUN/Creatinine Ratio 14, Glucose Level 94, Lactic Acid Level 1.23, Calcium Level 9.5, Corrected Calcium 9.2, Magnesium Level 2.7H, Total Bilirubin 1.1H, Aspartate Amino Transf (AST/SGOT) 40H, Alanine Aminotransferase (ALT/SGPT) 72H, Alkaline Phosphatase 64, Total Protein 7.8, Albumin 4.4, Amylase Level 39, Lipase 20, TSH [place] Testing 1.05 05/13/21 20:40: Urine Color YELLOW, Urine Clarity CLEAR, Urine pH 6.0, Urine Specific [place] >=1.030, Urine Protein TRACEH, Urine Glucose (UA) NEGATIVE, Urine Ketones 2+H, Urine Nitrite NEGATIVE, Urine Bilirubin 1+H, Urine Urobilinogen 1.0, Urine Leukocyte Esterase NEGATIVE, Urine RBC (Auto) NEGATIVE, Urine RBC NONE, Urine WBC RARE, Urine Squamous Epithelial Cells RARE, Urine Crystals NONE, Urine Bacteria TRACE, Urine Casts NONE, Urine Mucus MODERATEH, Urine Culture Indicated NO, Urine Opiates Screen NEGATIVE, Urine Oxycodone Screen NEGATIVE, Urine Methadone Screen NEGATIVE, Urine Propoxyphene Screen NEGATIVE, Urine Barbiturates Screen NEGATIVE, Ur Tricyclic Antidepressants Screen NEGATIVE, Urine Phencyclidine Screen NEGATIVE, Urine Amphetamines Screen NEGATIVE, Urine Methamphetamines Screen NEGATIVE, Urine Benzodiazepines Screen NEGATIVE, Urine Cocaine Screen NEGATIVE, Urine Cannabinoids Screen NEGATIVE 05/14/21 04:02: White Blood Count 7.5, Red Blood Count 5.00, Hemoglobin 14.5, Hematocrit 43, Mean Corpuscular Volume 86, Mean Corpuscular Hemoglobin 29, Mean Corpuscular Hemoglobin Concent 34, Red Cell Distribution Width 12.6, Platelet Count 233, Mean Platelet Volume 9.2, Immature Granulocyte % (Auto) 1, Neutrophils (%) (Auto) 48, Lymphocytes (%) (Auto) 39, Monocytes (%) (Auto) 12, Eosinophils (%) (Auto) 1, Basophils (%) (Auto) 0, Neutrophils # (Auto) 3.6, Lymphocytes # (Auto) 2.9, Monocytes # (Auto) 0.9, Eosinophils # (Auto) 0.1, Basophils # (Auto) 0.0, Immature Granulocyte # (Auto) 0.0, Sodium Level 140, Potassium Level 3.9, Chloride Level 107, Carbon Dioxide Level 24, Anion Gap 9, Blood Urea Nitrogen 10, Creatinine 0.85, Estimat Glomerular Filtration Rate > 60, BUN/Creatinine Ratio 12, Glucose Level 105, Calcium Level 8.6, Corrected Calcium 8.8, Total Bilirubin 0.7, Aspartate Amino Transf (AST/SGOT) 27, Alanine Aminotransferase (ALT/SGPT) 58H, Alkaline Phosphatase 50, Total Protein 6.2L, Albumin 3.7 Microbiology 05/14/21 C. difficile GDH Antigen & Toxins - Final, Resulted 05/14/21 Stool Culture, Resulted Pending ECG Impression ECG Comment Atrial fibrillation with controlled ventricular rate. A/P-Cardiology Assessment/Admission Diagnosis Atrial fibrillation, paroxysmal. For the most part, he seems to be asymptomatic with this. His [id number] score is 0. He was given 2 doses of metoprolol and remains in atrial fibrillation. His echocardiogram does not show any structural heart disease to explain atrial fibrillation. His TSH level was normal. I recommend he be discharged home on metoprolol and Eliquis. I will plan to see him in the office in approximately 1 month. If he remains in atrial fibrillation at that time, then I will schedule him for an outpatient elective cardioversion. Chest pain. Exact etiology unclear. There are no ischemic changes on his electrocardiogram. Some patients can actually experience chest discomfort from atrial fibrillation. This is thought to be due to some component of atrial stretch. Nonetheless, given his young age and lack of significant cardiac risk factors, this is most likely noncardiac chest pain, possibly due to a musculoskeletal disorder or gastroesophageal reflux. Mitral regurgitation. He was told in the past that he had mitral valve prolapse. Today's echocardiogram shows trace mitral regurgitation with no evidence of mitral valve prolapse. This does not necessarily require any follow-up. Obesity. Lifestyle modification with exercise, diet and weight loss was recommended to the patient. Weight loss may help prevent recurrence of the atrial fibrillation in the future. Thank you for the courtesy of this consultation. At this point in time, I do not see any reason why the patient cannot be discharged home. My office will contact him to schedule a follow-up visit with me. Plan See above. WALI MEDINA JR, MD May 14, 2021 11:31
[2021-05-14 12:00] VITALS: BP 110/72
== END 2021-05-14 12:50 | disposition home or self-care (01) | DRG 392 ==
LOC: EDUNIT# 18:39 → ER 18:41 → CSD 21:35
PROVIDERS: ADMIT Internal Medicine; ATTEND Internal Medicine
DX: K52.9 Noninfective gastroenteritis and colitis, unspecified (principal); E86.0 Dehydration; I48.0 Paroxysmal atrial fibrillation; Z20.822 Contact with and (suspected) exposure to COVID-19; I34.0 Nonrheumatic mitral (valve) insufficiency; E66.9 Obesity, unspecified; Z68.31 Body mass index [BMI] 31.0-31.9, adult; Z79.01 Long term (current) use of anticoagulants; Z79.52 Long term (current) use of systemic steroids; Z87.891 Personal history of nicotine dependence
CPT/HCPCS: 36415; 71045; 74177; 80053; 80306; 81000; 82150; 83605; 83690; 83735; 84443; 85025; 85610; 85730; 87015; 87045; 87046; 87324; 87449; 87636; 87899; 93005; 93041; 93306

== ENCOUNTER 2021-06-12 09:30 | Outpatient (RCR) | payer OTHER ==
[~2021-06-12 09:30] MED LIST changes: +APIX5TAB PO; +MTP25TSR PO
[2021-08-07] MEDS ORDERED: PRD50T PO (13:37)
[2021-08-07] MEDS ORDERED: ACHD5005 PO (13:37)
== END 2021-09-10 | disposition home or self-care (01) ==
LOC: CARD 09:30
PROVIDERS: ATTEND Internal Medicine Cardiovascular Disease
DX: I48.0 Paroxysmal atrial fibrillation (principal)
CPT/HCPCS: 93270

== ENCOUNTER 2021-08-07 11:13 | Emergency (ER) | payer OTHER ==
[~2021-08-07] VITALS: Ht 187.9 cm; Wt 117.9 kg
--- NOTE | 2021-08-07 13:04 | ED Lower Extremity ---
General Chief Complaint: Lower Extremity Stated Complaint: L BIG TOE PAIN / SWELLING Nursing Triage Note: PT AMB TO TRIAGE WITH [facility] WITH COMPLAINT OF LEFT BIG TOE PAIN. STATES STARTED LAST NIGHT. DENIES INJURY Source: patient Exam Limitations: no limitations History of Present Illness Date Seen by Provider: Aug 07, 2021 Time Seen by Provider: 12:50 Initial Comments Patient is a 26-year-old male who presents to the emergency room with a chief complaint of left great toe pain. Onset in the middle of the night. Patient states that he suspects he might have gout. His mother has gout. He denies any trauma. No fevers or chills. He states even when the wind blows across it it hurts. Patient states that he likes to smoke lots of meats and smoked a brisket last night and also had a few beers. I believe this is the etiology of his gout flare. Patient has never had anything like this before. All other review of systems reviewed and negative except as stated Onset: this morning Pain/Injury Location: left 1st toe Method of Injury: other (possible gout) Allergies and Home Medications Allergies Coded Allergies: No Known Drug Allergies (Unverified , 08/27/14) Patient Home Medication List Home Medication List Reviewed: Yes Apixaban (Eliquis) 5 Mg Tablet, 5 MG PO BID Prescribed by: GAYATHRI CARRASCO on 05/14/21 112 Metoprolol Succinate (Metoprolol Succinate) 25 Mg Tab.er.24h, 25 MG PO DAILY Prescribed by: GAYATHRI CARRASCO on 05/14/21 1126 Review of Systems Constitutional: see HPI EENTM: no symptoms reported Cardiovascular: no symptoms reported Gastrointestinal: no symptoms reported Genitourinary: no symptoms reported Musculoskeletal: joint pain (left great toe) Skin: no symptoms reported All Other Systems Reviewed Negative Unless Noted: Yes Past Uwrdies-Jcwdxn-Gtnjcw Hx Patient Social History Tobacco Use?: No Use of E-Cig and/or Vaping dev: No Substance use?: No Alcohol Use?: No Pt feels they are or have been: No Immunizations Up To Date Tetanus Booster (TDap): Unknown Past Medical History Surgeries: Yes (cyst removal) Appendectomy Respiratory: No Cardiac: Yes ("mitral valve prolapse as child") Neurological: No Gastrointestinal: No Musculoskeletal: Yes (RT SHOULDER INFLAMMATION) Endocrine: No Cancer: No Psychosocial: No Integumentary: No Blood Disorders: No Physical Exam Vital Signs Vital Signs - First Documented 08/07/21 11:42 Pulse 100 Resp 20 B/P (MAP) 130/86 (101) Pulse Ox 97 O2 Delivery Room Air Capillary Refill : Less Than 3 Seconds Height, Weight, BMI Height: 6'" Weight: 210lbs. oz. [id number]; 33.00 BMI Method: General Appearance: WD/WN, no apparent distress Cardiovascular: regular rate, rhythm Respiratory: lungs clear, normal breath sounds, no respiratory distress, no accessory muscle use Hips: bilateral hip non-tender, bilateral hip normal inspection, bilateral hip normal range of motion, bilateral hip no evidence of injury Legs: bilateral leg non-tender, bilateral leg normal inspection, bilateral leg normal range of motion, bilateral leg no evidence of injury Knees: bilateral knee non-tender, bilateral knee normal inspection, bilateral knee normal range of motion, bilateral knee no evidence of injury Ankles: bilateral ankle non-tender, bilateral ankle normal inspection, bilateral ankle normal range of motion, bilateral ankle no evidence of injury Feet: left foot pain (pain and minimal erythema left great toe - significant pain with ROM at the MCP joint) Neurologic/Tendon: normal sensation, normal motor functions Neurologic/Psychiatric: alert, normal mood/affect, oriented x 3 Skin: normal color, warm/dry Progress/Results/Core Measures Results/Orders My Orders Orders - SINCERE REAL MD Prednisone Tablet (Deltasone Tablet) (08/07/21 13:15) Vital Signs/I&O 08/07/21 11:42 Pulse 100 Resp 20 B/P (MAP) 130/86 (101) Pulse Ox 97 O2 Delivery Room Air Blood Pressure Mean: 101 Progress Progress Note : Time: 13:35 Progress Note Patient started on prednisone. 50 mg for 5 days. We will send a prescription for pain medication as well, hydrocodone to the [facility]. Patient is advised to abstain from alcohol and high-protein meals. Advised to follow-up with a primary care physician. He verbalized understanding. All questions are sought and answered. Patient is stable for discharge. Departure Impression Primary Impression: Gout attack Qualified Codes: M10.472 - Other secondary gout, left ankle and foot Disposition: 01 HOME, SELF-CARE Condition: Stable Departure-Patient Inst. Decision time for Depature: 13:35 Referrals: [facility],LOCAL PHYSICIAN (PCP) Primary Care Physician Patient Instructions: Gout ED, LOCAL PHYSICIAN LIST Add. Discharge Instructions: Avoid alcohol while you have the gout flare as it can make it worse. So can high-protein meals. Take the prednisone, 50 mg daily for the next 4 days starting tomorrow. I have sent a prescription for pain medication to your pharmacy. Take this every 6 hours as needed for severe pain. Follow-up with your primary care physician. Return to the emergency room for any increased pain with swelling, increasing redness or streaking up the leg, fever or any other emergent concerning symptoms. Scripts Hydrocodone/Acetaminophen (Hydrocodone-Acetamin 5-325 mg) 1 Each Tablet 1 TAB PO Q6H PRN for PAIN-MODERATE (5-7), #12 TAB Prov: SINCERE REAL MD 08/07/21 Prednisone (Prednisone) 50 Mg Tab 50 MG PO DAILY, #4 TAB Prov: SINCERE REAL MD 08/07/21 SINCERE REAL MD Aug 07, 2021 13:04
[2021-08-07] MEDS ORDERED: predniSONE 20 MG TAB PO ONE (13:15)
[2021-08-07] MEDS ORDERED: ACHD5005 PO (13:37)
[2021-08-07] MEDS ORDERED: PRD50T PO (13:37)
[2021-08-07 13:57] VITALS: BP 130/86
== END 2021-08-07 13:57 | disposition home or self-care (01) ==
LOC: EDUNIT# 11:13 → ER 11:14
DX: M10.9 Gout, unspecified (principal); F17.290 Nicotine dependence, other tobacco product, uncomplicated; Z79.01 Long term (current) use of anticoagulants
CPT/HCPCS: 99283